=== PATIENT | female | born 2000 | race Caucasian/White ===

== ENCOUNTER 2021-08-20 11:18 | Day surgery (SDC) | payer OTHER, SELFPAY ==
--- NOTE | 2021-08-20 12:00 | RAD_ITS ---
STUDY: X-RAY - LEFT CLAVICLE REASON FOR EXAM: Female, 20 years old. Preop -- Left Clavicle TECHNIQUE: 2 view(s) of the clavicle. COMPARISON: None. FINDINGS: Normal clavicle. Normal acromioclavicular articulation. Normal visualized sternoclavicular articulation. Normal visualized pulmonary apex. RAD/Clavicle IMPRESSION: Normal x-ray examination of the clavicle. Electronically Signed: Robby Rodríguez MD at 12:24 EST ,
[2021-08-20 12:14] LABS: Internal QC Validated? YES +Cl - CLEAR BKGD; Pregnancy, Urine Negative Negative
[2021-08-20 12:30] VITALS: BP 107/30; PULSE 73; RESP 18; TEMP 37.3; O2SAT 98; BMI 22.4
[2021-08-20] MEDS: Lactated Ringers 1,000 ML 15 ML IV (12:40)
--- NOTE | 2021-08-20 13:15 | PCM.HP.BLA ---
History and Physical Date of Admission: 08/20/21 Date of Service: 08/19/21 MR#:[id number]: GISEL CROSSRep #:[id number] Provider:Dr. Vik Sierra DOAge/Sex: 20/F Location:[facility]:Signed with Addenda ADDENDUM by Dr. Vik Sierra DO on 08/19/21 at 1148 HPI Details: GISEL CROSS, is a 20 F who presents to the office today for Assessment and Plan Assessment and Plan (1) Right clavicle fracture: Status: Acute Qualifiers: Encounter type: initial encounter Clavicle location: shaft Fracture type: closed Fracture alignment: displaced Qualified Code(s): S42.021A - Displaced fracture of shaft of right clavicle, initial encounter for closed fracture Plan: Reviewed the increased risk of blood clots and surgery having a positive COVID-19 test. I understand wish to proceed 08/19/21 1148<Electronically signed by Vik Sierra DO>Date Vik Sierra DO cc: ~*Signed Intake Intake Visit Reasons: RIGHT SHOULDER HPI HPI Details: Patient was informed that this visit will be billed to patient. This visit was conducted during COVID-19 pandemic. GISEL CROSS, is a 20 F who presents to the office today for right clavicle fracture date of injury 08/12/2021 snowboarding incident. Denies other injury although complains about a day or 2 after start have left clavicle discomfort. She has difficulty raising the right shoulder secondary to pain in the fracture site. She denies any numbness or tingling or gross neurosensory deficits in the right upper extremity. There is no concern of impending open fracture. She did see another orthopedic group and preoperatively became positive for Covid although she never had symptoms. She is tentatively scheduled for a right clavicle ORIF on August 26 with his other group. They are requesting to have the surgery at [facility] and sooner if available. Exam Const General: cooperative and healthy appearing Extrem Other: Visually no sign of impending open fracture or significant ecchymosis around the fracture site she is tender to palpation over the fracture site when her mother touches it. She has difficulty lifting the right arm although she is able to move her hand and wrist and elbow without difficulty. Supplemental Info 08/12/2021 x-ray right clavicle: Midshaft clavicle fracture with 100% displacement and kickstand fragment Coding Level of Care Code 11-20 minutes Diagnoses Right clavicle fracture S42.021A Encounter type: initial encounter Clavicle location: shaft Fracture type: closed Fracture alignment: displaced Assessment and Plan Assessment and Plan (1) Right clavicle fracture: Status: Acute Qualifiers: Encounter type: initial encounter Clavicle location: shaft Fracture type: closed Fracture alignment: displaced Qualified Code(s): S42.021A - Displaced fracture of shaft of right clavicle, initial encounter for closed fracture Plan - Dr. Vik Sierra, DO: Discussed with patient and her mother the fracture pattern and they do wish to proceed with open reduction internal fixation risk benefits alternatives reviewed including risk of bleeding infection nerve artery tissue damage need for further surgery continued pain anterior chest wall numbness nonunion hardware prominence. We will plan on proceeding with ORIF tomorrow she will obtain an x-ray of her left clavicle in the preoperative area with her complaints. This will be a same-day surgery and she will follow-up in the office 2 weeks postoperatively. 08/19/21 1147<Electronically signed by Vik Sierra DO>Date Vik Sierra DO I have re-examined the patient. There are no clinical changes since date of exam
--- NOTE | 2021-08-20 13:30 | RAD_ITS ---
HISTORY: FX. TECHNIQUE: XR Clavicle Unilateral. Spot images: 3. Number of images including paperwork: 4. COMPARISON: 08/12/2021. FINDINGS: OSSEOUS STRUCTURES: Cortical plate and screw fixation of right mid clavicular fracture with improved alignment and decreased displacement. RAD/Clavicle IMPRESSION: ORIF of right clavicle fracture. Please refer to procedure note. at 1700 Reported and signed by: Mell Estrella MD Electronically Signed: Mell Estrella MD at 16:59 EST ,
[2021-08-20] MEDS: Cefazolin 2 GM in 0.9% Normal Saline 100 ML IV (13:50)
[2021-08-20] MEDS: Bupivacaine 0.25% 30 ML Vial (15:27)
--- NOTE | 2021-08-20 15:33 | OP.PCM_ITS ---
Report of Operation Date of Procedure: 08/20/21 Description of Surgical Findings:: Preoperative diagnosis: Displaced shortened midshaft right clavicle fracture with comminution Postoperative diagnosis: Same Procedure: Open reduction internal fixation of right clavicle with Synthes 7 hole plate Anesthesia: General EBL: 10 Complications: None Condition: Stable to PACU Indication for procedure: 20-year-old female seen injury to right clavicle during a snowboarding incident, on August 09. She was seen in another facility and had preoperative blood work which was positive for COVID-19 although she had no symptoms. Patient and family prefer to have surgery at [facility] they come to me for evaluation and treatment of her clavicle fracture. We discussed the fracture pattern the significant displacement shortening and kickstand component I discussed operative versus nonoperative intervention patient family wished to proceed with operative intervention risk benefits and alternatives were reviewed including risk of bleeding infection nerve, artery, bone, tissue damage, blood clot need for further surgery and continued pain, hardware prominence need for hardware removal injury to underlying vasculature and lung tissue. Increased risk of infection and postoperative complications from having COVID-19. Special precautions were taken in consideration of positive COVID-19 test Procedure: Patient was met in the preoperative holding area once again the operative extremity was identified by both patient and physician and was marked. Patient was met by anesthesia and brought back to the operating room and transfered to the operating table in the supine position. Anesthesia was started. Patient was then positioned in a beachchair configuration and C-arm was brought in to ensure proper fluoroscopic views could be obtained. Patient was then prepped and draped in usual sterile fashion and a timeout was called to ensure the proper patient procedure and extremity are being contemplated. A straight incision was made over the fracture site electrocautery was used to maintain meticulous hemostasis. Full-thickness flaps were elevated through the deltoid trapezial fascia subperiosteal dissection was carried around the fracture site and only enough soft tissue was removed off of the superior side of the clavicle to allow for adequate plate fixation. The fracture was then cleaned of hematoma with the use of curettes and with the use of lobster claws and [id number] reduction clamps at reduction was performed. There was comminution in the fracture there was a kickstand component that fitted anteriorly at the fracture site and the fracture was split in a coronal orientation the fragment was not wide enough to lag screw it back to the main fragments. Therefore after it was reduced in its proper position it was cerclaged with a #2 FiberWire x2 . Because of this comminution at the fracture site with the use of a seven hole plate only to use bicortical 3.5 mm cortical screws could be placed laterally . Three replaced medially 3.5 cortical screws which were placed bicortically with attention not to plunge beneath the undersurface cortex patient remained stable the entire procedure no complications occurred. The wound was thoroughly irrigated prior to closure and rinse with a Betadine solution and then irrigated again. Fluoroscopy was brought in to ensure the proper plate was in position. And fluoroscopic images were saved to the PACS system. Wound was thoroughly irrigated and closure was performed with 0 Vicryl followed by 3-0 Vicryl subcutaneous stitches followed by running 4-0 Monocryl and Steri-Strips in the skin with a Mepilex dressing over top and a simple sling, patient was transferred to PACU in stable condition all counts were correct.
--- NOTE | 2021-08-20 15:39 | DCINST_ITS ---
Discharge Instructions Activity Additional Activity Instructions:: Must keep shoulder clean. Keep dressing on 72 hours then may remove prior to first shower at that point may shower daily with warm water and antibacterial soap over incision however do not submerge in tub pool or other. There are white Steri-Strips over incision these should be left on after outer dressing is removed and it is okay to get these wet after the initial 72 hours. They will fall off on their own replace with light dressing if needed for drainage. Keep covered if not and and a clean area must keep incision clean as possible to avoid infection. May remove sling as it is for comfort only encourage shoulder and arm range of motion immediately however no weight to the right upper extremity no pushing or pulling with right upper extremity. Call with any questions or concerns only take pain medication as prescribed do not mix pain medications with medications you have had previously. Okay to take Tylenol and or [id number] NSAID in addition to narcotic. Narcotic can be addictive and abusive do not mix with alcohol and only take as prescribed. Follow-up in my office in 2 weeks for wound check or sooner if any questions or concerns. Follow Up Care Test Results: Test results from this visit will be discussed in further detail at your follow-up appointment, if applicable. Discharge Plan Admission Attending Provider: Vik Sierra Primary Care Provider: Rohini Dye Primary Discharge Orders/Prescriptions Prescriptions: New acetaminophen [acetaminophen] 500 MG tablet 1,000 mg PO Q6H PRN Qty: 100 RF: 0 cephalexin [cephalexin] 500 MG capsule 1,000 mg PO Q8 Qty: 4 RF: 0 oxycodone 5 mg tablet 5 - 10 mg PO Q4H PRN (Reason: pain) 1 Days Qty: 5 RF: 0 ondansetron HCl 4 mg tablet 4 mg PO Q6H PRN (Reason: nausea and vomiting) Qty: 5 RF: 0 Other Ambulatory Orders: Clavicle (Routine) Timeframe: [id number] Facility: [facility] - Location: [facility] Ordered By: Dr. Vik Sierra Referrals / Follow Up: Rohini Dye Primary [Primary Care Provider] - Disposition Disposition (needs filled in before D/C Order can be placed): Home, Self Care
[2021-08-20 16:02] VITALS: BP 107/30; BP 113/71; PULSE 76; RESP 15; TEMP 37.1; O2SAT 100
[2021-08-20 16:15] VITALS: BP 107/30; BP 119/71; PULSE 99; RESP 17; O2SAT 100
[2021-08-20 16:17] VITALS: BP 107/30; BP 122/79; PULSE 78; RESP 16; TEMP 37.3; O2SAT 100
[2021-08-20 17:43] VITALS: BP 107/30; BP 118/73; PULSE 76; RESP 18; TEMP 36.7; O2SAT 100
[2021-08-20 17:51] VITALS: BP 107/30
== END 2021-08-20 23:59 | disposition home or self-care (01) ==
LOC: SDC 11:26 → AC 11:27
PROVIDERS: Anesthesiology; Referring Provider Orthopaedic Surgery; Visit Provider Orthopaedic Surgery
PROC: (CPT 23515; principal; 2021-08-20 13:10)
DX: S42.021A Displaced fracture of shaft of right clavicle, initial encounter for closed fracture (principal)
CPT/HCPCS: 23515; 73000; 76000; 81025; C1713; J7120; J2405

== ENCOUNTER → 2023-09-18 | Outpatient (CLI) | payer OTHER, SELFPAY ==
[2023-09-18 15:30] LABS: Absolute Lymphocyte Count 1.55 X10^3/uL (0.83-4.51); Absolute Neutrophil Count 5.1 X10^3/uL (2.0-7.7); Basophil# 0.03 X10^3/uL; Basophil% 0.4 % (0-1); Eosinophil# 0.05 X10^3/uL; Eosinophils% 0.7 % (0-5); Hematocrit 34.8 % (37-47); Hemoglobin 12.3 g/dL (12.0-15.0); Lymphocyte # 1.55 X10^3/ul (0.83-4.51); Lymphocyte % 21.5 % (19-41); Mean Corp Hgb Conc 35.3 g/dL (32-36); Mean Corpuscular Hgb 30.4 pg (27.0-32.0); Mean Corpuscular Volume 86.1 fL (81-99); Mean Platelet Vol. 10.2 fl (6.2-12.0); Monocyte# 0.51 X10^3/uL; Monocyte% 7.1 % (0-10); NRBC Flagged by Analyzer 0 % (0-5); Neutrophil # 5.06 X10^3/uL (2.7-7.7); Platelet Count 233 K/mm3 (150-450); RBC Distribution Width CV 12.1 % (11.6-14.6); RBC Distribution Width SD 38.2 fl (35.1-43.9); Red Blood Count 4.04 M/mm3 (4.2-5.4); White Blood Count 7.2 K/mm3 (4.4-11.0)
--- OUTSIDE RECORDS SUMMARY | 2023-09-18 16:47 | XMS RPT_ITS | CCD ---
Author Name Unknown Address [address] [place] [address] Organization [facility] Care Team Providers Care Stemhole Borer Name Role Phone LAUREL LEE THUAN Attending Unavailable NO, PHYSICIAN Primary Care Unavailable AMARA MUNOZ Attending Unavailable NO, PHYSICIAN Primary Care Unavailable No, Physician Primary Care Provider Unavailabl e AGATHA GUSMAN Referring Unavailab le HARDY, AGATHA HAAS Admitting Unavailab le NO, PHYSICIAN Primary Care Unavailable HARDY, AGATHA HAAS Admitting Unavailab le HARDY, AGATHA HAAS Attending Unavailab le NO, PHYSICIAN Primary Care Unavailable NO, PHYSICIAN Primary Care Unavailable RICARDO MADSEN Attending Unava ilable None, No PCP Unavailable Unavailable Mariela Kramer, Dr. Vik Bishop Attending navailable Mariela Kramer, Dr. Vik Bishop Attending navailable Borrusun Kramer, Dr. Vik Bishop Attending navailable Borplacido Kramer, Dr. Vik Bishop Attending navailable Mariela Kramer, Dr. Vik Bishop Attending navailable Borplacido Kramer, Dr. Vik Bishop Attending navailable Borrusun Kramer, Dr. Vik Bishop Attending navailable Mariela Kramer, Dr. Vik Bishop Attending navailable Mariela Kramer, Dr. Vik Bishop Attending navailable Mariela Kramer, Dr. Vik Bishop Attending navailable Mariela Kramer, Dr. Vik Bishop Attending navailable Mariela Kramer, Dr. Vik Bishop Attending navailable Mariela Kramer, Dr. Vik Bishop Attending navailable Mariela Kramer, Dr. Vik Bishop Attending navailable Mariela Kramer, Dr. Vik Bishop Attending navailable Mariela Kramer, Dr. Vik Bishop Attending dhiraj Sierra Jr, Dr. Vik Bishop Attending dhiraj Sierra Jr, Dr. Vik Bishop Attending dhiraj Sierra Jr, Dr. Vik Bishop Attending dhiraj Sierra Jr, Dr. Vik Bishop Attending dhiraj Unavailable Primary Care Provider UnavailFRANCISCO Kellogg Attending Unavailable Unavailable Primary Care Provider Unavailabl e Medications Current Medications Medication Drug Class(es) Dates Sig (Normalized) Sig (Original) ibuprofen 800 mg oral tablet (3 sources) Nonsteroidal Anti-inflammatory Drug Start: 08-12-2021 End: 09-11-2021 take 1 tablet by mouth every six hours as needed for pain ibuprofen (ADVIL,MOTRIN) 800 MG tablet Take 1 (one) tablet (800 mg total) by mouth every 6 (six) hours as needed for pain . 30 tablet 0 08/12/2021 09/11/2021 Active vitamin mkpfzsh-uzjo-laeaw 27 mg iron- 1 mg tablet (1 source) take 1 tablet by mouth once daily vitamin uwzkymm-cqqd-kor ic 27 mg iron- 1 mg tablet Take 1 tablet by mouth once daily. 0 Active traMADol hydrochloride 50 mg oral tablet (3 sources) Opioid Agonist Start: 08-13-2021 take 1 tablet by mouth every four hours as needed for pain traMADoL (ULTRAM) 50 mg tablet Indications: Closed displaced fracture of shaft of right clavicle, initial encounter Take 1 tab by mouth every 4 hours as needed for pain. . 18 tablet 0 08/13/2021 Active Problems Active Problems Problem Classification Problem Date Documented Da te Episodic/Chronic Fracture of upper limb (4 sources) Closed fracture of shaft of clavicle; Translations: [Displaced fracture of shaft of right clavicle, initial encounter for closed fracture] Onset: 08-14-2021 Episodic Joint disorders and dislocations; trauma-related (6 sources) Dislocation of shoulder joint; Translations: [Other specified aftercare] Onset: 05-30-2022 Episodic Menstrual disorders (3 sources) Amenorrhea; Translations: [Amenorrhea, unspecified] Onset: 08-11-2023 08-11-2023 Chronic Other acquired deformities (3 sources) Scoliosis deformity of spine; Translations: [Scoliosis, unspecified] Onset: 01-26-2014 08-14-2021 Chronic Other connective tissue disease (15 sources) Muscle weakness; Translations: [Muscle weakness (generalized)] Episodic Other non-traumatic joint disorders (15 sources) Shoulder pain; Translations: [Pain in joint, shoulder region] Episodic Other non-traumatic joint disorders (15 sources) Decreased range of shoulder movement; Translations: [Stiffness of joint, not elsewhere classified, shoulder region] Episodic Other and delivery including normal (3 sources) test positive; Translations: [Encounter for test, result positive] Onset: 08-11-2023 08-11-2023 Episodic Past or Other Problems Problem Classification Problem Date Documented Da te Episodic/Chronic Other connective tissue disease (1 source) Muscle weakness (generalized); Translations: [Muscle weakness (generalized)] Onset: 11-18-2021 Episodic Other non-traumatic joint disorders (1 source) Pain in right shoulder; Translations: [Pain in right shoulder] Onset: 11-18-2021 Episodic Other non-traumatic joint disorders (1 source) Stiffness of right shoulder, not elsewhere classified; Translations: [Stiffness of right shoulder, not elsewhere classified] Onset: 11-18-2021 Episodic Results Test Name Value Interpretation Reference Range Facil ity Vital Signs Date Time Vital Sign Value Performing Clinician Faci lit 08-11-2023 10:45-0500 Body height 167.6 cm Francisco Emerson MD Work Phone: [facility] 08-11-2023 10:45-0500 Body mass index (BMI) [Ratio] 23.02 kg/m2 Francisco Emerson MD Work Phone: [facility] 08-11-2023 10:45-0500 Body weight 64.68 kg Francisco Emerson MD Work Phone: [facility] 08-11-2023 10:45-0500 Diastolic blood pressure 70 mm[Hg] Francisco Emerson MD Work Phone: [facility] 08-11-2023 10:45-0500 Systolic blood pressure 126 mm[Hg] Francisco Emerson MD Work Phone: [facility] 08-13-2021 09:58-0500 Body height 167.6 cm Laurel Lee CNP Work Phone: [facility] 08-13-2021 09:58-0500 Body mass index (BMI) [Ratio] 21.79 kg/m2 Laurel Lee PAINT PREP TECHNICIAN Work Phone: [facility] 08-13-2021 09:58-0500 Body weight 61.24 kg Laurel Lee PAINT PREP TECHNICIAN Work Phone: [facility] Encounters Encounter Date Encounter Type Care Provider Facility Start: 09-02-2023 ambulatory Heena Eric oliva GARCIAN.CNM Work Phone: OB/Gynecology Procedures Date Procedure Procedure Detail Performing Clinician Start: 08-11-2023 OB TRANSVAGINAL TRAMAINE EMERSON Start: 08-11-2023 POCT , URINE J LIA EMERSON Start: 08-11-2023 Us preg uterus real time w/image dcmtn transvag Francisco Emerson MD Work Phone: Start: 08-11-2023 Urine test visual color cmprsn meths Francisco Emerson MD Work Phone: Plan of Treatment Date Care Activity Detail Author Start: 10-31-2049 Zoster Vaccines (1 of 2) Zoste r Vaccines (1 of 2) [facility] Start: 07-27-2023 Depression Assessment Depression [facility] Start: 03-27-2023 Influenza vaccination Influenza Vacc ine (#1) [facility] Start: 05-30-2022 PTRECHADUL, Provider : Richard Carballo, Status: Pen, Time: 8:30 AM PTRECHADUL, Provider: Richard Carballo, Status: Pen, Time: 8:30 AM [facility] Work Phone: Start: 05-30-2022 PTFUADULT4, Provider : Richard Carballo, Status: Pen, Time: 7:45 AM PTFUADULT4, Provider: Richard Carballo, Status: Pen, Time: 7:45 AM [facility] Work Phone: Start: 05-27-2022 PTFUADULT4, Provider : Camila Quintero, Status: Pen, Time: 8:30 AM PTFUADULT4, Provider: Camila Quintero, Status: Pen, Time: 8:30 AM [facility] Work Phone: Start: 05-23-2022 PTFUADULT4, Provider : Richard Carballo, Status: Pen, Time: 8:30 AM PTFUADULT4, Provider: Richard Carballo, Status: Pen, Time: 8:30 AM [facility] Work Phone: Start: 05-20-2022 PTFUADULT4, Provider : Jenny Peacock, Status: Pen, Time: 8:30 AM PTFUADULT4, Provider: Jenny Peacock, Status: Pen, Time: 8:30 AM [facility] Work Phone: Start: 05-16-2022 PTFUADULT4, Provider : Richard Carballo, Status: Pen, Time: 8:30 AM PTFUADULT4, Provider: Richard Carballo, Status: Pen, Time: 8:30 AM [facility] Work Phone: Start: 05-13-2022 PTFUADULT4, Provider : Jenny Peacock, Status: Pen, Time: 8:30 AM PTFUADULT4, Provider: Jenny Peacock, Status: Pen, Time: 8:30 AM [facility] Work Phone: Start: 05-09-2022 PTFUADULT4, Provider : Camila Quintero, Status: Pen, Time: 8:30 AM PTFUADULT4, Provider: Camila Quintero, Status: Pen, Time: 8:30 AM [facility] Work Phone: Start: 05-06-2022 PTFUADULT4, Provider : Camila Quintero, Status: Pen, Time: 8:30 AM PTFUADULT4, Provider: Camila Quintero, Status: Pen, Time: 8:30 AM [facility] Work Phone: Start: 02-11-2022 Tetanus vaccination Tetanus: Every 1 0yrs [facility] Start: 11-18-2021 PTRECHALANIS, Provider : Ruth Barnes, Status: Pen, Time: 4:45 PM PTRECHALANIS, Provider: Ruth Barnes, Status: Pen, Time: 4:45 PM [facility] Work Phone: Start: 11-11-2021 PTFUADULT4, Provider : Carley Yuan, Status: Pen, Time: 7:00 AM PTFUADULT4, Provider: Carley Yuan, Status: Pen, Time: 7:00 AM [facility] Work Phone: Start: 11-04-2021 PTFUADULT4, Provider : Carley Yuan, Status: Pen, Time: 7:00 AM PTFUADULT4, Provider: Carley Yuan, Status: Pen, Time: 7:00 AM [facility] Work Phone: Start: 10-31-2021 DTaP/Tdap/Td Vaccine s (1 - Tdap) DTaP/Tdap/Td Vaccines (1 - Tdap) [facility] Start: 10-28-2021 PTFUADULT4, Provider : Carley Yuan, Status: Pen, Time: 7:00 AM PTFUADULT4, Provider: Carley Yuan, Status: Pen, Time: 7:00 AM [facility] Work Phone: Start: 10-21-2021 PTFUADULT4, Provider : Carley Yuan, Status: Pen, Time: 7:00 AM PTFUADULT4, Provider: Carley Yuan, Status: Pen, Time: 7:00 AM [facility] Work Phone: Start: 10-14-2021 PTFUADULT4, Provider : Carley Yuan, Status: Pen, Time: 7:00 AM PTFUADULT4, Provider: Carley Yuan, Status: Pen, Time: 7:00 AM [facility]: Start: 10-07-2021 PTRECHECKA, Provider : Ruth Barnes, Status: Pen, Time: 9:30 AM PTRECHECKA, Provider: Ruth Barnes, Status: Pen, Time: 9:30 AM [facility] Work [facility]: Start: 10-04-2021 PTFUADULT4, Provider : Mely Beltre, Status: Pen, Time: 9:15 AM PTFUADULT4, Provider: Mely Beltre, Status: Pen, Time: 9:15 AM [facility] Work Phone: Start: 09-30-2021 PTFUADULT4, Provider : Mely Beltre, Status: Pen, Time: 2:00 PM PTFUADULT4, Provider: Mely Beltre, Status: Pen, Time: 2:00 PM [facility]: Start: 09-27-2021 PTFUADULT4, Provider : Ruth Barnes, Status: Pen, Time: 10:45 AM PTFUADULT4, Provider: Ruth Barnes, Status: Pen, Time: 10:45 AM [facility]: Start: 09-23-2021 PTFUADULT4, Provider : Mely Beltre, Status: Pen, Time: 10:45 AM PTFUADULT4, Provider: Mely Beltre, Status: Pen, Time: 10:45 AM [facility] Work Phone: Start: 09-20-2021 PTFUADULT4, Provider : Ruth Barnes, Status: Pen, Time: 9:30 AM PTFUADULT4, Provider: Ruth Barnes, Status: Pen, Time: 9:30 AM [facility] Work [facility]: Start: 09-16-2021 PTFUADULT4, Provider : Mely Beltre, Status: Pen, Time: 1:15 PM PTFUADULT4, Provider: Mely Beltre, Status: Pen, Time: 1:15 PM [facility]: Start: 09-13-2021 PTFUADULT4, Provider : Jenny Peacock, Status: Pen, Time: 10:00 AM PTFUADULT4, Provider: Jenny Peacock, Status: Pen, Time: 10:00 AM [facility] Work [facility]: Start: 08-30-2021 End: 08-30-2021 Follow-up encounter 08/30/2021 Follow-Up Sports Medicine Agatha Gusman MD [address] [place] [id number] [facility] Start: 08-26-2021 End: 08-26-2021 Admission to same day surgery center 08/26/2021 Surgery Agatha Gusman MD [address] [place] [id number] Open reduction internal fixation right clavicle [facility] Payers Date Payer Category Payer Unknown [id number] 2021 Unknown [id number] 1999 Unknown [id number] 2.16. [id number] 1999 Unknown [id number] 216. [id number] 1999 Unknown [id number] 2.. [id number] 1999 Unknown [id number] 2.16. 840.1.348490.3.579.2.903 1999 Unknown [id number] 2.16. 840.1.137622.3.579.2.902 1999 Unknown [id number] 2.16.8 40.1.665987.3.579.2.1068 1999 Unknown [id number] 2.16.8 40.1.221602.3.579.2.1068 1999 Unknown [id number] 2.16.8 40.1.996284.3.579.2.1068 1999 Unknown [id number] 2.16.8 40.1.399374.3.579.2.1068 1999 Unknown [id number] 2.16.8 40.1.776254.3.579.2.1068 1999 Unknown [id number] 2.16.8 40.1.918810.3.579.2.1068 1999 Unknown [id number] 2.16.8 40.1.267057.3.579.2.1068 1999 Unknown [id number] 2.16.8 40.1.920964.3.579.2.1068 1999 Unknown [id number] 2.16.8 40.1.519797.3.579.2.1068 1999 Unknown [id number] 2.16.8 40.1.292088.3.579.2.1068 1999 Unknown [id number] 2.16.8 40.1.387845.3.579.2.1068 1999 Unknown [id number] 2.16.8 40.1.532396.3.579.2.1068 1999 Unknown [id number] 2.16.8 40.1.261345.3.579.2.1068 1999 Unknown [id number] 2.16.8 40.1.061301.3.579.2.1068 1999 Unknown [id number] 2.16.8 40.1.074780.3.579.2.9 1999 Unknown [id number] 2.16.8 40.1.651206.3.579.2.9 1999 Unknown [id number] 2.16.8 40.1.575591.3.579.2.1068 1999 Unknown [id number] 2.16.8 40.1.305184.3.579.2.1068 1999 Unknown [id number] 2.16.8 40.1.454767.3.579.2.1068 1999 Unknown [id number] 2.16.8 40.1.452075.3.579.2.1068 1999 Unknown [id number] 2.16.8 40.1.033669.3.579.2.1244 Social History Date Type Detail Facility Start: 08-12-2021 End: 08-11-2023 Tobacco smoking status DCIS Never smoked tobacco [facility] Start: 08-12-2021 End: 08-11-2023 Tobacco use and exposure Smokeless tobacco non-user [facility] Start: 08-14-2021 Alcohol intake Current drinke r of alcohol (finding) [facility] Start: 08-12-2021 History SDOH Alcohol Frequency 1 [facility] Start: 08-13-2021 History SDOH Alcohol Comment 5 per week beer, wine or liquor [facility] Start: 2000 Sex Assigned At Not on file [facility] Start: 08-01-2023 End: 08-11-2023 Exposure to SARS-CoV-2 (event) Not sure [facility] Start: 08-11-2023 Alcohol intake Ex-drinker (finding) [facility] Work Phone: Start: 08-11-2023 History of Social function [facility] Work Phone: Start: 08-11-2023 Tobacco use panel [facility] Work Phone: Start: 08-11-2023 Alcohol Comment Occasionally [facility] Work Phone: Tobacco smoking stat [facility] Tobacco smoking consumption unknown [facility] Clinical Notes 08-13-2021 to 09-02-2023 Xochitl Woodward RN - 09/02/2023 9:38 AM Beau Emerson MD - 08/11/2023 10:30 AM Edson [place], PHYTOPATHOLOGIST - 08/15/2021 8:28 AM Shanelle Lee, ELOY - 08/13/2021 10:05 AM EST Note Date & Type Note Facility 09-02-2023 Note HNO ID: [id number] Author: XOCHITL WOODWARD RN Service: ? Author Type: Registered Nurse Type: Progress Notes Filed: 09/02/2023 09:39 Note Text: Received records from [facility]. Patient has upcoming appointment on 09/18/23 with CP. Records placed in binder. Xochitl Woodward RN [facility] 09-02-2023 History of Present illness Narrative Received records from [facility]. Patient has upcoming appointment on 09/18/23 with CP. Records placed in binder. Xochitl Woodward RN documented in this encounter [facility] 08-11-2023 History of Present illness Narrative Christy García is a 22 y.o. year old female patient. PCP = No primary care provider on file. Chief Complaint Patient presents with Amenorrhea New Patient is here due to amenorrhea. LMP: 06/15/23. Patient c/o nausea, cramps and breast tenderness. Patient denies any vaginal bleeding. HPI Presents stating that she has not had a menstrual flow since May. She has some nausea and breast tenderness for several weeks. Denies any vaginal bleeding or abdominal pain. OB History No obstetric history on file. History reviewed. No pertinent past medical history. Past Surgical History: Procedure Laterality Date CLAVICLE SURGERY Right plate placed Review of Systems: Constitutional: No fever or chills Respiratory: No shortness of breath, or cough Cardiovascular: No chest pain or syncope Breasts: No breast pain, no masses, no nipple discharge Gastrointestinal: No nausea, vomiting, or diarrhea, no abdominal pain Genitourinary: No dysuria or frequency Gynecology: Negative except as noted in history of present illness All other: All other systems reviewed and negative for complaint Medication Documentation Review Audit Reviewed by Francisco Emerson MD (Physician) on 08/11/23 at 1103 Medication Order Taking? Sig Documenting Provider Last Dose Status vitamin szengro-nvgl-pumuo 27 mg iron- 1 mg tablet [id number] Take 1 tablet by mouth once daily. Historical Provider, Active BP 126/70 Ht 1.676 m (5' 6 ) Wt 64.7 kg (142 lb 9.6 oz) LMP 06/15/2023 BMI 23.02 kg/m PHYSICAL EXAMINATION: Well-developed, well nourished, in no acute distress, alert and oriented x three, is pleasant and cooperative. HEENT: Clear. Pupils equal, round and reactive to light and accommodation. Extraocular muscles are intact. Oral mucosa pink without exudate. NECK: No lymphadenopathy, no thyromegaly. LUNGS: Clear bilaterally. HEART: Regular rate and rhythm without murmurs. ABDOMEN: Normoactive bowel sounds, soft and nontender, no guarding or rebound tenderness, no CVA tenderness. EXTREMITIES: No clubbing, cyanosis or edema. NEUROLOGIC: Cranial nerves II-XII grossly intact. : Normal external female genitalia, normal vulva, normal vagina. Normal urethral meatus, urethra and bladder. Vaginal ultrasound shows a live intrauterine at 7 weeks 0 days gestation. EDC is March 29, 2024. Orders Placed This Encounter Procedures US OB transvaginal Order Specific Question: Reason for exam: Answer: Amenorrhea Order Specific Question: Radiologist to Determine Optimal Study Answer: Yes Order Specific Question: Release result to MyChart Answer: Immediate [1] Order Specific Question: Is this exam part of a Research Study? If Yes, link this order to the research study Answer: No POCT , urine manually resulted Order Specific Question: Release result to MyChart Answer: Immediate [1] Problem List Items Addressed This Visit None Visit Diagnoses Amenorrhea - Primary Relevant Orders US OB transvaginal (Completed) test positive Relevant Orders POCT , urine manually resulted (Completed) Provider Impression: 1. Amenorrhea Follow-up in 4 weeks for new OB visit, cultures and labs. documented in this encounter [facility] Work Phone: 08-20-2021 History of Present illness Narrative Christy García, a 20 year old female, arrives to outpatient PT s/p R clavicle ORIF completed 08/20/2021. Pt presents with the following impairments: R GH/clavicle pain, strength deficits of R GH joint, PROM/AROM deficits of R GH joint, and restrictions in tissue of R SCM and R UT. These impairments contribute to difficulty in activity limitations and participation restrictions including overhead activities, showering, donning/doffing clothing, and performing job duties. The pt will benefit from skilled PT services 2x/week for 4 weeks to address the above stated impairments and functional limitations to maximize participation and ease in household, social, and work related activities. 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 Demonstrates increased muscle guarding with PROM requiring verbal cues to relax. Good tolerance to ther ex this date with increase in soreness by end of treatment session. The pt verbalized understanding and agreement to goals and POC. Thank you for this referral and please call [phone] with any questions or concerns.Clinical Presentation: Stable and/or uncomplicated characteristics.Level of Complexity: lowProblem List: activity limitations, ADLs/IADLs/self care skills, decreased knowledge of HEP, pain, range of motion/joint mobility and strength. [facility] Work Phone: 08-15-2021 History of Present illness Narrative Christy tested positive for COVID yesterday. Per Dr Gusman her surgery will be postponed until 08-26-21. I did speak w her and she know to quarantine 5 days then wear a mask for an additional 5 days at all times when she is out. documented in this encounter [facility] 08-13-2021 History of Present illness Narrative Christy García 2000 CC: 20 y.o. is a she with clavicle pain. HPI:Pain: Patient complains pain in the right shoulder and clavicle pain. She was snowboarding yesterday and landed on the right clavicle. She had instant pain and a noticeable deformity to the right shoulder area. She ended up in the emergency room and was told that she had a fractured clavicle and that she would have to follow up with orthopedics. She presents today in a sling. She reports continued pain in the right shoulder. She has been taking 800mg ibuprofen for pain and it isn't helping. She has to sleep upright because of the pain. She reports that she feels as though the bones are moving if she tries to move the shoulder. She denies any numbness or tingling in the arm, hand or fingers. She denies any changes in temp of the hand or fingers. She reports she is able to move all her fingers PMH: No Known Allergies Current Outpatient Medications: ibuprofen (ADVIL,MOTRIN) 800 MG tablet, Take 1 (one) tablet (800 mg total) by mouth every 6 (six) hours as needed for pain ., Disp: 30 tablet, Rfl: 0 traMADoL (ULTRAM) 50 mg tablet, Take 1 tab by mouth every 4 hours as needed for pain. ., Disp: 18 tablet, Rfl: 0 No current facility-administered medications for this visit. History reviewed. No pertinent past medical history. History reviewed. No pertinent surgical history. Social History Socioeconomic History Marital status: Single Tobacco Use Smoking status: Never Smoker Smokeless tobacco: Never Used Substance and Sexual Activity Alcohol use: Yes Comment: 5 per week beer, wine or liquor Drug use: Never The patient's past medical history, surgical history, social history, family history, medications and allergies were reviewed with the patient today and are available in the chart for further review. ROS: Review of Systems Constitutional: Negative for activity change and fatigue. HENT: Negative for congestion, hearing loss and trouble swallowing. Eyes: Negative for visual disturbance. Respiratory: Negative for chest tightness and shortness of breath. Cardiovascular: Negative for chest pain and palpitations. Gastrointestinal: Negative for abdominal pain, diarrhea, nausea and vomiting. Endocrine: Negative for polydipsia, polyphagia and polyuria. Genitourinary: Negative for decreased urine volume, difficulty urinating and hematuria. Musculoskeletal: Positive for arthralgias, joint swelling, neck pain and neck stiffness. Negative for myalgias. Skin: Negative for color change, rash and wound. Allergic/Immunologic: Negative for immunocompromised state. Neurological: Negative for dizziness, weakness, light-headedness and numbness. Hematological: Does not bruise/bleed easily. Psychiatric/Behavioral: Negative for confusion and sleep disturbance. The patient is not nervous/anxious. PE: Physical Exam Constitutional: Appearance: She is well-developed and well-nourished. HENT: Head: Normocephalic. Eyes: Pupils: Pupils are equal, round, and reactive to light. Cardiovascular: Rate and Rhythm: Normal rate and regular rhythm. Pulmonary: Effort: Pulmonary effort is normal. Breath sounds: Normal breath sounds. Abdominal: General: Bowel sounds are normal. Palpations: Abdomen is soft. Musculoskeletal: General: Swelling, tenderness, deformity and signs of injury present. Right shoulder: Swelling, deformity, tenderness, bony tenderness and crepitus present. Decreased range of motion. Normal pulse. Cervical back: Normal range of motion and neck supple. Comments: R clavicle with obvious tenting deformity. Pulses present, capillary refill <3 sec. Limited range of motion due to pain. Skin: General: Skin is warm and dry. Neurological: Mental Status: She is alert and oriented to person, place, and time. Imaging:Clavicle: reviewed from 08/12/21 displaced fracture of the right clavicle. Assessment/Plan: After examination and reviewing of the patient x-ray images, we discussed treatment options. This will require surgical intervention in order to fix the clavicle given the amount of displacement. Dr. Gusman did review these images and will add her on for surgery this week. I am prescribing her some Tramadol since the ibuprofen and tylenol are not giving her pain relief. The office will contact her to schedule the surgery. I am happy to see her back if needed prior to the surgery. She verbalizes understanding and is in agreement with the treatment plan. Diagnosis: Problem List Items Addressed This Visit None Visit Diagnoses Closed displaced fracture of shaft of right clavicle, initial encounter - Primary Relevant Medications traMADoL (ULTRAM) 50 mg tablet Follow Up: No follow-ups on file. Laurel Lee CNP documented [facility] Closed displaced fracture of shaft of right clavicle, initial encounter- [facility] Diagnosis Amenorrhea- Primary Absence of menstruation test positive examination or test, positive result documented in this encounter [facility] Work Phone: History of Present illness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
[2023-09-18 16:54] LABS: HIV - WCH Non-Reactive (Nonreactive); Hepatitis B Surface Antibody Non-Reactive; Hepatitis B Surface Antigen Non-Reactive (Nonreactive); Hepatitis C Antibody Non-Reactive (Nonreactive); Rubella IgG Reactive (Nonreactive); Syphilis Antibodies Non-reactive
== END | disposition home or self-care (01) ==
LOC: LAB 14:12
PROVIDERS: Referring Provider Advanced Practice Midwife; Visit Provider Advanced Practice Midwife
DX: Z34.91 Encounter for supervision of normal pregnancy, unspecified, first trimester (principal)
CPT/HCPCS: 36415; 83036; 85025; 86703; 86706; 86762; 86780; 86803; 86900; 86901; 87340

== ENCOUNTER → 2023-11-02 | Outpatient (CLI) | payer OTHER, SELFPAY ==
--- NOTE | 2023-11-02 12:15 | US_ITS ---
STUDY: SECOND AND THIRD TRIMESTER OBSTETRICAL ULTRASOUND REASON FOR EXAM: Female, 23 years old ANATOMY LMP: June 15, 2023. TECHNIQUE: Transabdominal and Transvaginal TECHNICAL QUALITY: Adequate. PRIOR ULTRASOUND: None. FINDINGS: There is a single intrauterine fetus. The fetus is in a cephalic presentation. There is demonstrated cardiac activity with a heart rate of 152 bpm. There is a normal amniotic fluid volume. The largest amniotic fluid pocket measures 2.9 cm x 6.9 cm. The amniotic fluid index (MAHAMED) is within normal limits. The placenta is right lateral with a marginal previa. The tip of the placenta is at 5.3 mm from the cervical os. There are Grade 0 placental changes. The cervix measures 5.1 cm in length. The adnexal regions are not visualized. BIOMETRY: BPD: 4.67 cm: 20 weeks, 1 days HC: 12.68 cm: 20 weeks, 1 days AC: 14.41 cm: 19 weeks, 5 days FL: 3.04 cm: 19 weeks, 3 days CI: 74.4% FL/BPD: 65.2% FL/HC: FL/AC: 21.1% HC/AC: 1.23 age by current US: 20 weeks, 0 days. BHAVANA by current US: March 21, 2024. Estimated weight: 306 grams, +/- 46 grams, 28 %. Age by LMP: 20 weeks, 0 days. BHAVANA by LMP: March 21, 2024. ANATOMY: Gender: Female Cranium: Normal lateral ventricles. Normal choroid plexus. Normal cerebellum. Normal cisterna magna. Normal face, nose and lips. Chest: Normal 4-chamber heart. Abdomen/Pelvis: Normal diaphragm. Normal stomach. Normal abdominal wall. Normal cord insertion. Normal 3 vessel cord. Normal kidneys. Normal bladder. Spine: Normal cervical spine. Normal thoracic spine. Normal lumbar spine. Normal sacrum. Extremities: Normal bilateral upper extremities. Normal bilateral lower extremities. IMPRESSION: Single live intrauterine gestation with mean gestational age of 20 weeks. Marginal placenta previa. Electronically Signed: Robby Rodríguez MD at 8:42 EDT , STUDY: FIRST TRIMESTER OBSTETRICAL ULTRASOUND REASON FOR EXAM: Female, 23 years old. Cervical length. LMP: June 15, 2023. TECHNIQUE: Transvaginal TECHNICAL QUALITY: Adequate. PRIOR ULTRASOUND: None. FINDINGS: Cervical length measures 5.1 cm. US/OB Anatomy w/ Transvaginal IMPRESSION: Cervical length measures 5.1 cm. Electronically Signed: Robby Rodríguez MD at 8:43 EDT ,
== END | disposition home or self-care (01) ==
PROVIDERS: Referring Provider Obstetrics & Gynecology; Visit Provider Obstetrics & Gynecology
DX: Z34.02 Encounter for supervision of normal first pregnancy, second trimester (principal)
CPT/HCPCS: 76805; 76817

== ENCOUNTER → 2023-12-16 | Outpatient (CLI) | payer OTHER, SELFPAY ==
[2023-12-16 11:38] LABS: Hematocrit 34.3 % (37-47); Hemoglobin 11.6 g/dL (12.0-15.0); Mean Corp Hgb Conc 33.8 g/dL (32-36); Mean Corpuscular Hgb 31.4 pg (27.0-32.0); Mean Platelet Vol. 10.7 fl (6.2-12.0); Platelet Count 201 K/mm3 (150-450); RBC Distribution Width CV 12.6 % (11.6-14.6); RBC Distribution Width SD 43.2 fl (35.1-43.9); Red Blood Count 3.69 M/mm3 (4.2-5.4); White Blood Count 7.8 K/mm3 (4.4-11.0)
[2023-12-16 12:02] LABS: Glucose Challenge Gest 1H 50g 74 mg/dL (70-140)
[2023-12-16 12:25] LABS: Syphilis Antibodies Non-reactive
== END | disposition home or self-care (01) ==
PROVIDERS: Referring Provider Obstetrics & Gynecology; Visit Provider Obstetrics & Gynecology
DX: Z34.02 Encounter for supervision of normal first pregnancy, second trimester (principal)
CPT/HCPCS: 36415; 82950; 85027; 86780

== ENCOUNTER 2024-03-04 07:49 | Outpatient (CLI) | payer OTHER, SELFPAY ==
[2024-03-04] VITALS (12 sets, daily range): BP systolic 115; BP diastolic 81; PULSE 77–90; TEMP 36.7; O2SAT 95–98; BMI 28.0
[2024-03-04] MEDS: Lactated Ringers 1,000 ML 125 ML IV (08:21)
--- NOTE | 2024-03-04 10:14 | PCM.HP.BLA ---
History and Physical Date of Admission: 03/04/24 Expand All Collapse AllExpand All by Default Pre-Op History and Physical HPI: The patient is a 23 year old female presenting for pre-procedure visit She is scheduled for external cephalic version, for breech at 37+ weeks gestation on 03/04/24. Procedure discussed along with risks, benefits and complications. Other alternatives discussed for management. Consent form signed? Yes. PAST MEDICAL HISTORY No past medical history on file. PAST SURGICAL HISTORY PAST SURGICAL HISTORY No date: PAST SURGICAL HISTORY OF; Right Comment: collar bone CURRENT MEDICATIONS Current Outpatient Medications Medication Sig Dispense Refill ? PNV no.95/ferrous fum/folic ac ( ORAL) Take by mouth. No current facility-administered medications for this visit. ALLERGIES: Patient has no known allergies. PERSONAL HISTORY: SOCIAL HISTORY Social History Tobacco Use ? Smoking status: Never ? Smokeless tobacco: Never Vaping Use ? Vaping Use: Never used Substance Use Topics ? Alcohol use: Not Currently ? Drug use: Never FAMILY HISTORY: FAMILY HISTORY FAMILY HISTORY Problem Relation Age of Onset ? No Known Problems Mother ? No Known Problems Father ? No Known Problems Brother ? No Known Problems Brother ? Cancer Maternal Grandmother ? Heart Maternal Grandmother ? Heart Maternal Grandfather ? No Known Problems Paternal Grandmother ? Heart Paternal Grandfather REVIEW OF SYMPTOMS: negative except as noted above PHYSICAL EXAMINATION: VITALS: Blood pressure 110/70, weight 76.7 kg (169 lb), last menstrual period 06/15/2023. GENERAL: The patient is well nourished, well hydrated in no acute distress. , The patient is oriented to time, place, and person. NECK: full range of motion Abd: gravid, non tender. Breech, maternal right. IMPRESSION: 23yo @ 37 weeks gestation- breech PLAN: External cephalic version Pt counseled on risks of procedure including but not limited to failure, pain, intolerance, placental abruption and need for emergent c/s. Pt wishes to proceed. Consent obtained. I have reviewed and updated past medical and surgical history, medications and allergies Naima Hyman MD
--- NOTE | 2024-03-04 10:14 | PCM.OPRPT ---
Report of Operation Date of Procedure: 03/04/24 Pre-Operative Diagnosis: breech, 37 weeks Post-Operative Diagnosis: vertex, 37 weeks Surgery/Procedure Performed:: external cephalic version Description of Surgical Findings:: breech, maternal right Surgeon: Naima Crain lottery manager: Yeni Kinney Description of Procedure: Patient was brought to the unit for external cephalic version after discussion regarding primary section versus attempted etc. cephalic version. Patient understood the risks and benefits and alternatives. We discussed the risk of pain, failure or possible intolerance with possible placental abruption and need for emergent section. Patient is signed consent previously in the office on March 02, 2024. At this time ultrasound was done at bedside and confirmed that fetus was still breech head was at maternal right back was on the maternal left at this time gel was placed on the maternal abdomen and a forward roll was attempted myself along with Dr. Kinney. At this time the fetus got correction and a break was given and at this time then the forward roll was reattempted and vertex position was reached. heart tones with the ultrasound were noted to be bradycardic at approximately 20 to 30 bpm. The patient was then placed all the way on her left maternal side oxygen was applied and the labor and delivery staff was notified to open the operating room in case of an emergency section. Again maternal position changes were done and at this time heart tones continue to improve to the 80s 90s and then to a normal range at approximately 120 beats. Total time that heart tones were down was approximately 3 minutes. Will continue to monitor the patient for approximately 2 hours to ensure that the heart tones remain reactive and without decelerations. fetus remained in the vertex position. pt tolerated the procedure well. Admit VTE Documentation VTE Present on Admission: No VTE Pharm Prophylaxis ordered?: No Reason prophylaxis not ordered:: Procedure Not Indicated
[2024-03-04 10:36] LABS: Absolute Lymphocyte Count 1.85 X10^3/uL (0.83-4.51); Absolute Neutrophil Count 6.7 X10^3/uL (2.0-7.7); Basophil# 0.06 X10^3/uL; Basophil% 0.6 % (0-1); Eosinophil# 0.06 X10^3/uL; Eosinophils% 0.6 % (0-5); Hematocrit 34.2 % (37-47); Hemoglobin 11.9 g/dL (12.0-15.0); Lymphocyte # 1.85 X10^3/ul (0.83-4.51); Lymphocyte % 19.1 % (19-41); Mean Corp Hgb Conc 34.8 g/dL (32-36); Mean Corpuscular Hgb 31.4 pg (27.0-32.0); Mean Corpuscular Volume 90.2 fL (81-99); Mean Platelet Vol. 10.9 fl (6.2-12.0); Monocyte# 0.82 X10^3/uL; Monocyte% 8.5 % (0-10); NRBC Flagged by Analyzer 0 % (0-5); Neutrophil % 69.3 % (47-70); Platelet Count 192 K/mm3 (150-450); RBC Distribution Width CV 12.6 % (11.6-14.6); RBC Distribution Width SD 41.1 fl (35.1-43.9); Red Blood Count 3.79 M/mm3 (4.2-5.4); White Blood Count 9.7 K/mm3 (4.4-11.0)
--- NOTE | 2024-03-04 13:14 | OB.TRI.NOTE ---
HPI - General General Date of Admission: 03/04/24 HPI Narrative GISEL ZAVALA, is a 23 F who presents PFSH PFS Medical History Dislocation of left shoulder joint Alcohol use Non-smoker Home Medications ?Medication ?Instructions ?Recorded ?Last Taken ?Type NK 09/30/21 Unknown History Allergy/AdvReac Type Severity Reaction Status Date / Time No Known Allergies Allergy Verified 05/12/22 08:04 Surgical History No history of previous surgery Social History Smoking Status: Never smoker NST FHR Rate Baby A Baseline: 140 Variability:: Moderate Accelerations:: 15 x 15 Decelerations:: None NST Reactive:: Yes FHR Category:: Category I Uterine Activity:: irregular
== END 2024-03-04 12:35 | disposition home or self-care (01) ==
LOC: WPOUT 07:56 → WP 07:57
PROVIDERS: Referring Provider Obstetrics & Gynecology; Visit Provider Obstetrics & Gynecology
DX: O32.1XX0 Maternal care for breech presentation, not applicable or unspecified (principal); Z3A.37 37 weeks gestation of pregnancy
CPT/HCPCS: 96360; 96361; 36415; 59025; 59050; 59412; 85025; 86850; 86900; 86901; 99221; J7120; G0378

== ENCOUNTER 2024-03-29 11:05 | Inpatient (IN) | payer OTHER, SELFPAY ==
[2024-03-29] VITALS (7 sets, daily range): BP systolic 113–129; BP diastolic 66–77; PULSE 80–86; RESP 16–18; TEMP 36.6–37; O2SAT 92–98; BMI 28.7
[2024-03-29] MEDS: 0.9% Saline Lock 10 ML Syringe IV (13:10)
[2024-03-29] MEDS: miSOPROStol 25 MCG TABLET PO (13:25)
[2024-03-29 13:26] LABS: Absolute Lymphocyte Count 1.45 X10^3/uL (0.83-4.51); Absolute Neutrophil Count 6.6 X10^3/uL (2.0-7.7); Basophil# 0.04 X10^3/uL; Basophil% 0.5 % (0-1); Eosinophil# 0.03 X10^3/uL; Eosinophils% 0.3 % (0-5); Hematocrit 37.5 % (37-47); Hemoglobin 13.1 g/dL (12.0-15.0); Lymphocyte # 1.45 X10^3/ul (0.83-4.51); Lymphocyte % 16.5 % (19-41); Mean Corp Hgb Conc 34.9 g/dL (32-36); Mean Corpuscular Hgb 31.5 pg (27.0-32.0); Mean Corpuscular Volume 90.1 fL (81-99); Monocyte# 0.53 X10^3/uL; NRBC Flagged by Analyzer 0 % (0-5); Neutrophil # 6.63 X10^3/uL (2.7-7.7); Neutrophil % 75.3 % (47-70); Platelet Count 190 K/mm3 (150-450); RBC Distribution Width CV 12.7 % (11.6-14.6); RBC Distribution Width SD 41.4 fl (35.1-43.9); Red Blood Count 4.16 M/mm3 (4.2-5.4); White Blood Count 8.8 K/mm3 (4.4-11.0)
[2024-03-29 14:10] LABS: Syphilis Antibodies Non-reactive
[2024-03-29] MEDS: 0.9% Normal Saline Single 100 ML IV.SOLN. INTRA-UTER (16:31)
--- NOTE | 2024-03-29 16:38 | HP.PCM.OB_ITS ---
HPI - General General Date of Admission: 03/29/24 HPI Narrative GISEL ZAVALA, is a 23 F who presents at 41w1d for induction of labor due to oligohydramnios. Was planning IOL tomorrow but presented for BPP and found to have oligohydramnios with MAHAMED of 3cm and no 2x2 pocket. PFSH PFSH Medical History Oligohydramnios Trauma Dislocation of left shoulder joint Alcohol use Non-smoker Home Medications ?Medication ?Instructions ?Recorded ?Last Taken ?Type vitamins no.159-iron 1 tab PO DAILY 03/29/24 03/28/24 22:00 History fumarate 28 mg-folic acid 800 mcg 1 TAB tablet ( Vitamin) Allergy/AdvReac Type Severity Reaction Status Date / Time No Known Allergies Allergy Verified 03/29/24 12:51 Surgical History No history of previous surgery Social History Smoking Status: Never smoker History Elective abortions Hx Para 0 Spontaneous abortions Hx # Term Pregnancies Ectopic pregnancies Hx # Pregnancies Multiple births # of living children NST FHR Rate Baby A Baseline: 145 Variability:: Moderate Accelerations:: 15 x 15 Decelerations:: None FHR Category:: Category I Uterine Activity:: every 3 minutes, mild ROS Constitutional Constitutional: Reports systems reviewed and no addt'l complaints, except as documented; Denies headache(s) Eyes Eyes: Denies acute decrease in peripheral vision, blurry vision or change in vision ENT HEENT: Reports systems reviewed and no addt'l complaints, except as documented Cardiovascular Cardiovascular: Denies chest pain or dizziness Respiratory/Chest Respiratory/Chest: Denies cough, dyspnea, dyspnea on exertion, shortness of breath at rest or shortness of breath with exertion Gastrointestinal Gastrointestinal: Denies abdominal pain, diarrhea, nausea or vomiting Genitourinary Genitourinary: Denies abdominal discomfort Musculoskeletal Musculoskeletal: Denies limited range of motion Integumentary Integumentary: Reports systems reviewed and no addt'l complaints, except as documented Neurologic Neurologic: Reports systems reviewed and no addt'l complaints, except as documented Psychiatric Psychiatric: Reports systems reviewed and no addt'l complaints, except as docume nted Endocrine Endocrinology: Reports systems reviewed and no addt'l complaints, except as documented Hematologic/Lymphatic Hematologic/Lymphatic: Reports systems reviewed and no addt'l complaints, except as documented Allergic/Immunologic Allergic/Immunologic: Reports systems reviewed and no addt'l complaints, except as documented Vital Signs Vital Signs Vital Signs: 03/29/24 12:39 03/29/24 12:39 03/29/24 12:39 Temperature Temperature Source Temporal Pulse Rate 84 Respiratory Rate Blood Pressure 121/73 H BP Systolic 121 BP Diastolic 73 Pulse Ox 03/29/24 12:39 03/29/24 12:39 03/29/24 14:16 Temperature 98.4 F Temperature Source Pulse Rate Respiratory Rate 16 Blood Pressure 113/73 BP Systolic 113 BP Diastolic 73 Pulse Ox 03/29/24 14:16 03/29/24 15:11 03/29/24 15:11 Temperature Temperature Source Pulse Rate 81 85 Respiratory Rate Blood Pressure BP Systolic BP Diastolic Pulse Ox 97 03/29/24 15:13 03/29/24 15:13 03/29/24 15:13 Temperature Temperature Source Temporal Pulse Rate 86 Respiratory Rate Blood Pressure 118/71 BP Systolic 118 BP Diastolic 71 Pulse Ox 03/29/24 15:13 03/29/24 15:13 Temperature 97.9 F Temperature Source Pulse Rate Respiratory Rate 18 Blood Pressure BP Systolic BP Diastolic Pulse Ox Weight Weight: 172 lb 9.951 oz Body Mass Index (BMI) 28.7 Physical Exam Const alert and oriented x3 General Appearance: cooperative Orientation / Consciousness: awake, oriented to person, oriented to place and oriented to time Exam Limitations: no limitations HEENT normocephalic Head and Scalp: normal to inspection, normocephalic and atraumatic Face and Sinus: normal facial exam Eyes General Eye: normal appearance of both eyes Neck full ROM Chest Chest: symmetrical chest wall rise Resp normal respiratory effort and normal air movement Auscultation: clear to auscultation bilaterally Cardio regular rate, regular rhythm, S1 normal heart sound, S2 normal heart sound, no murmurs, no rub, no gallops and no clicks GI normal to inspection, nondistended, normoactive bowel sounds and non-tender appearance of the vagina normal Narrative: 1cm/50%/-2. Velasquez inserted through cervix without difficulty, 30ml NS instilled. Tolerated well. Bladder / Kidney Exam: no CVA tenderness Back/Spine normal ROM Extremity normal to inspection and full ROM Skin no rashes or lesions noted Neuro oriented x3, CN's II-XII intact bilaterally and moves all extremities Sensorium / Orientation: awake, alert and oriented to person Motor Exam: clonus absent Deep Tendon Reflexes: Rt Patellar (L4): 2+ and Lt Patellar (L4): 2+ Labs Labs Labs: Blood Type O POSITIVE Antibody Screen NEGATIVE Hct 37.5 % (37-47) Hgb 13.1 g/dL (12.0-15.0) Obstetrics Ultrasound Syphilis Total Ab Non-reactive Rubella IgG Antibody Reactive (Nonreactive) Hep Bs Antigen Non-Reactive (Nonreactive) Hepatitis C Antibody Non-Reactive (Nonreactive) HIV 1&2 Antibody Non-Reactive (Nonreactive) Glucose 1 Hr 50 gm 74 mg/dL (70-140) GBS positive Assessment & Plan (1) Encounter for induction of labor: (2) 41 weeks gestation of : PLAN: Plan 1) Admit to labor and delivery 2) Routine labs 3) Velasquez and PO cytotec. 4) Pitocin once velasquez is out and 4 hrs after last cytotec dose 5) Declines LARC immediate PP 6) Pain management upon request 7) collaborative physician and notified of patient status.
[2024-03-29] MEDS: Lactated Ringers 1,000 ML 50 ML IV (18:10)
[2024-03-29] MEDS: Penicillin G Pot 5,000,000 UNITS in 0.9% Normal Saline (100mL MB+) 100 ML 150 UNITS IV (20:06)
[2024-03-29] MEDS: LACTATED RINGERS 500 ML 999 ML IV (21:03)
[2024-03-30] VITALS (55 sets, daily range): BP systolic 92–146; BP diastolic 51–93; PULSE 78–190; RESP 14–20; TEMP 36.3–37.6; O2SAT 94–100
[2024-03-30] MEDS: Penicillin G 3,000,000 Units 50 ML 100 UNITS IV ×5 (00:02→18:21)
[2024-03-30] MEDS: Ondansetron 4 MG/2 ML Vial IV ×2 (00:09→04:17)
[2024-03-30] MEDS: Oxytocin 15 Units/NS 250ml 15 UNITS/250 ML IV.SOLN 2 UNITS IV (02:53)
[2024-03-30] MEDS: Lactated Ringers 1,000 ML 999 ML IV (04:54)
[2024-03-30] MEDS: fentaNYL-bupivacaine (epidural) 100 ML BAG EPIDURAL ×4 (05:42→18:21)
[2024-03-30] MEDS: Lactated Ringers 1,000 ML 200 ML IV ×3 (08:55→18:21)
[2024-03-30] MEDS: Oxytocin 15 Units/NS 250ml 15 UNITS/250 ML IV.SOLN 334 UNITS IV (23:17)
--- NOTE | 2024-03-30 23:44 | EX.PCM.OBRPT ---
Assessment & Plan (1) (spontaneous vaginal delivery): (2) Oligohydramnios: QUALIFIERS: Fetus number: single or unspecified fetus Trimester: third trimester Qualified Code(s): O41.03X0 - Oligohydramnios, third trimester, not applicable or unspecified COMMENT: MAHAMED 3 (3) 41 weeks gestation of : Maternal Data Information Final BHAVANA: 03/21/24 Gestational age: 41+2 Vaginal Delivery Maternal Presentation Maternal Presentation: Medically Indicated Induction Maternal Presentation: IOL at 41 weeks Type of Induction: Pitocin, Hu Bulb, Amniotomy (ROM at complete dilation with cervical exam) and Cytotec Operative Information Date of Procedure: 03/30/24 Pre-Operative Diagnosis: oligo Post-Operative Diagnosis: same Surgery / Procedure Performed: Spontaneous Vaginal Delivery Type of Anesthesia: Epidural Drain: Hu to straight drain Estimated Blood Loss: 150 cc Time of Delivery: 23:12 Findings Description of Procedure: IOL for oligo. Received Cytotec, Hu, and then Pitocin for labor induction. ROM was avoided due to oligo until SROM at 10 cm with exam and station of +1. Pt pushed to deliver the head SABINE. The shoulders followed easily. The cried upon delivery. Ther was a cord around the leg. The was place on the maternal abdomen. The cord was clamped and cut. Cord blood was collected. The placenta delivered spontaneously. A second degree laceration was repaired with 2-0 Vicryl. Presentation: Vertex and SABINE Amniotic Membrane Rupture Type: Spontaneous Amniotic Fluid Description: Clear Placental Delivery Description: Spontaneous Placenta Disposition: [facility] Cord Vessel Description: 3 Vessels Cord Entanglement: - (around leg) Nuchal Cord Compression: Without compression A Gender: Female (1 minute): 8 (5 minute): 8 Delayed Cord Clamping: Yes Post Vaginal Delivery Medications Given After Delivery: IV Pitocin Episiotomy Description: None Laceration: Midline and 2nd degree Complication Complications: None
[2024-03-30] MEDS: Oxytocin 15 Units/NS 250ml 15 UNITS/250 ML IV.SOLN 83 UNITS IV (23:48)
[2024-03-31] VITALS (31 sets, daily range): BP systolic 106–121; BP diastolic 56–74; PULSE 76–127; RESP 14–17; TEMP 36.5–37.3; O2SAT 82–98
[2024-03-31] MEDS: Acetaminophen 500 MG Tablet PO (00:18)
[2024-03-31] MEDS: Benzocaine/Lanolin/Aloe Vera 85 GM Spray 1 SPRAY TOPICAL (00:55)
[2024-03-31] MEDS: Ibuprofen 600 MG Tablet PO ×3 (03:59→20:15)
--- NOTE | 2024-03-31 08:45 | PCM.PROGNOTE ---
Subjective Subjective patient seen at bedside, doing well. Patient reports good pain control. lochia mild. Objective Data Objective Data Vital Signs: Vital Signs Temp Pulse Resp BP Pulse Ox O2 Del Method 97.8 F 87 17 120/74 97 Room Air 03/31/24 08:00 03/31/24 08:19 03/31/24 08:00 03/31/24 08:19 03/31/24 08:00 03/31/24 08:00 Oxygen Delivery Method Room Air Weight: 78.3 kg Body Mass Index (BMI) 28.7 Intake & Output: Intake and Output for Last 24 Hours 03/29/24 03/30/24 03/31/24 23:59 23:59 23:59 Intake Total 914.17 / 914.17 7011.96 / 7011.96 250 / 250 Output Total 4965 / 4965 600 / 600 Balance 914.17 / 914.17 2046.96 / 2046.96 -350 / -350 Lab / Micro Data 03/29/24 13:10 Physical Exam Const alert and oriented x3 General Appearance: cooperative HEENT normocephalic Neck General: normal visual inspection GI soft to palpation and non-distended GI Narrative: Fundus firm Extremity normal to inspection and no calf tenderness Skin no rashes or lesions noted Neuro oriented x3 and CN's II-XII intact bilaterally Psych mental status grossly normal Assessment & Plan Assessment/Plan (1) (spontaneous vaginal delivery): PLAN: Plan PPD# 1 , Doing well Routine care pain mgmt ambulation
[2024-03-31] MEDS: Senna/Docusate Sodium 1 Tablet PO (11:43)
[2024-03-31] MEDS: Acetaminophen 500 MG Tablet 1000 MG PO ×2 (15:17→22:36)
[2024-04-01 00:05] VITALS: BP 108/62; PULSE 75; PULSE 80; RESP 14; TEMP 36.7; O2SAT 97
[2024-04-01 04:48] VITALS: BP 114/65; PULSE 72; PULSE 74; RESP 14; TEMP 36.7; O2SAT 97
[2024-04-01 08:20] VITALS: BP 113/59; PULSE 71
[2024-04-01] MEDS: Acetaminophen 500 MG Tablet 1000 MG PO (08:24)
[2024-04-01] MEDS: Senna/Docusate Sodium 1 Tablet PO (08:24)
--- NOTE | 2024-04-01 08:51 | PCM.PN.OB ---
Subjective Subjective Patient is doing well and offers no complaints. Desires discharge to home today. Pain is well-controlled. Lochia is normal. She is ambulating without difficulty. Voiding without difficulty. Denies chest pain, shortness breath, leg pain, lightheadedness. Objective Data Objective Data Vital Signs: Vital Signs Temp Pulse Resp BP Pulse Ox O2 Del Method 98.1 F 71 14 113/59 L 97 Room Air 04/01/24 04:48 04/01/24 08:20 04/01/24 04:48 04/01/24 08:20 04/01/24 04:48 04/01/24 04:48 Oxygen Delivery Method Room Air Weight: 172 lb 9.951 oz Body Mass Index (BMI) 28.7 Intake & Output: Intake and Output for Last 24 Hours 03/30/24 03/31/24 04/01/24 23:59 23:59 23:59 Intake Total 7011.96 / 7011.96 250 / 250 Output Total 4965 / 4965 600 / 600 Balance 2046.96 / 2046.96 -350 / -350 Lab / Micro Data 03/29/24 13:10 Physical Exam Const alert and no apparent distress General Appearance: comfortable HEENT normocephalic Resp normal respiratory effort GI soft to palpation, non-tender and non-distended Extremity normal to inspection and no calf tenderness Assessment & Plan (1) (spontaneous vaginal delivery): PLAN: PPD#1 doing well. Discharge instructions reviewed.
--- NOTE | 2024-04-01 08:54 | DCINST_ITS ---
Discharge Instructions Diet Discharge Diet: No restrictions Activity Discharge Activity: May Drive and May Shower May resume sexual activity in: 6 weeks Ice area for (Minutes): 15 Lifting Restrictions: nothing heavier than baby Dressing / Incision Call your doctor if you observe: Fever of 101 or Higher, Coldness, Increased Pain, Numbness or Tingling, Change in Color, Inability to urinate, Inability to have a bowel movement, Using more than 1 pad per hour, Shortness of breath, Dizziness, Fainting spells, Swelling in the ankles, Chest pain, Prolonged h iccupping, Increased palpitations (irregular heartbeat), Calf discomfort and Uncontrolled pain Cleanse incision/area with: Soap & Water Follow Up Care When: 1-2 week early 6 week exam Test Results: Test results from this visit will be discussed in further detail at your follow- up appointment, if applicable. Discharge Plan Admission Admit Date/Time: 03/29/24 11:05 Primary Reason for Your Visit: delivery Attending Provider: Xochitl Nguyen Primary Care Provider: Rohini Dye Primary Instructions Patient Instructions: After a Vaginal Discharge Orders/Prescriptions Prescriptions: Continued Vitamin 28 mg iron- 800 mcg tablet 1 tab PO DAILY Referrals / Follow Up: Care Physician,Rohini Primary [Primary Care Provider] - Disposition Disposition (needs filled in before D/C Order can be placed): Home, Self Care
[2024-04-01 09:02] VITALS: BP 113/59; PULSE 71; RESP 16; TEMP 36.8; O2SAT 97
== END 2024-04-01 14:12 | disposition home or self-care (01) | DRG 807 ==
PROVIDERS: Admitting Provider Advanced Practice Midwife; Referring Provider Obstetrics & Gynecology; Visit Provider Obstetrics & Gynecology
DX: O41.03X0 Oligohydramnios, third trimester, not applicable or unspecified (principal); Z37.0 Single live birth; O48.0 Post-term pregnancy; O69.82X0 Labor and delivery complicated by other cord entanglement, without compression, not applicable or unspecified; O70.1 Second degree perineal laceration during delivery; Z3A.41 41 weeks gestation of pregnancy
CPT/HCPCS: 59025; 59050; 85025; 86780; 86850; 86900; 86901; 99221; J7120; A4216; G0378; J2405

== ENCOUNTER → 2025-03-24 | Outpatient (CLI) | payer OTHER, SELFPAY ==
[2025-03-24 16:35] LABS: Hematocrit 36.7 % (37-47); Hemoglobin 13.2 g/dL (12.0-15.0); Immature Granulocytes Count 0.010 X10^3/uL (0.0-0.0); Mean Corp Hgb Conc 36.0 g/dL (32-36); Mean Corpuscular Volume 85.5 fL (81-99); Mean Platelet Vol. 10.6 fl (6.2-12.0); NRBC Flagged by Analyzer 0 % (0-5); Platelet Count 246 K/mm3 (150-450); RBC Distribution Width CV 11.7 % (11.6-14.6); RBC Distribution Width SD 36.2 fl (35.1-43.9); Red Blood Count 4.29 M/mm3 (4.2-5.4); White Blood Count 6.8 K/mm3 (4.4-11.0)
[2025-03-24 17:27] LABS: HIV Nonreactive (Nonreactive); Hepatitis B Surface Antigen Nonreactive (Nonreactive); Hepatitis C Antibody Nonreactive (Nonreactive); Syphilis Antibodies Nonreactive (Nonreactive)
[2025-03-28 21:07] LABS: Chlamydia By Nucleic Acid AMP Negative (Negative); Gonococcus By Nucleic Acid AMP Negative (Negative)
== END | disposition home or self-care (01) ==
LOC: BWCLAB 13:52
PROVIDERS: Referring Provider Advanced Practice Midwife; Visit Provider Advanced Practice Midwife
DX: O09.90 Supervision of high risk pregnancy, unspecified, unspecified trimester (principal); Z3A.00 Weeks of gestation of pregnancy not specified
CPT/HCPCS: 36415; 85025; 86703; 86762; 86780; 86803; 86850; 86900; 86901; 87086; 87340; 87491; 87591